=== PATIENT | male | born 1990 | race Two or more races ===

== ENCOUNTER 2017-05-29 18:00 | Emergency (ER) | payer BC, OTHER ==
[2017-05-29 18:06] VITALS: TEMP 97.7
--- NOTE | 2017-05-29 18:18 | EDPHY ---
H & P Time Seen by Provider: 05/29/17 18:02 HPI/ROS: CHIEF COMPLAINT: Right leg injury HISTORY OF PRESENT ILLNESS: 27-year-old male presents to the emergency department with injury to the right lower leg. The patient was playing soccer and his foot was planted any somehow twisted and fell injuring his right ankle. He did not hit his head or lose consciousness. Denies neck or back pain. Denies chest pain or difficulty breathing. Denies headache. Denies abdominal pain or vomiting. The incident happened at 5:30 a.m. this evening. He last ate frozen yogurt at 3:00 p.m. REVIEW OF SYSTEMS: Constitutional: No fever, no chills. Eyes: No double or blurry vision. ENT: No sore throat. Respiratory: No cough, no shortness of breath. Cardiac: No chest pain. Gastrointestinal: No abdominal pain, vomiting or diarrhea. Genitourinary: No dysuria. Musculoskeletal: No neck or back pain. Skin: No rashes. Neurological: No headache. Past Medical/Surgical History: ACL repair Social History: Lives in [place] Smoking Status: Never smoked Physical Exam: General Appearance: Alert, no distress. No visible signs of trauma to his head. He is mentating normally and answering questions appropriately. Eyes: Pupils equal and round. Extraocular motions are all intact. ENT: Mouth: Mucous membranes moist. Respiratory: No wheezing, rhonchi, or rales, lungs are clear to auscultation. Cardiovascular: Regular rate and rhythm. Gastrointestinal: Abdomen is soft and nontender, no masses, no rebound or guarding, bowel sounds normal. Neurological: Alert and oriented x 3, cranial nerves II through XII grossly intact Skin: Warm and dry, no rashes. No abrasion. No signs of open fracture or puncture wound. Musculoskeletal: Nontender to palpate along the cervical, thoracic or lumbar spine. Neck is supple. Extremities: Obvious swelling noted to the right ankle both to the medial and lateral malleolus. Diffusely tender to palpate the right ankle. Limited dorsi flexion secondary to pain. Normal sensation to light touch with normal 2 point discrimination. Strong dorsalis pedis and posterior tibial pulse palpated in the right ankle. His right knee is nontender. Right hip is nontender. Psychiatric: Patient is oriented X 3, there is no agitation. Constitutional: Initial Vital Signs Temperature (C) 36.5 C 05/29/17 18:04 Heart Rate 95 05/29/17 18:04 Respiratory Rate 16 05/29/17 18:04 Blood Pressure 117/94 H 05/29/17 18:04 O2 Sat (%) 98 05/29/17 18:04 O2 Delivery Mode Room Air Allergies/Adverse Reactions: No Known Allergies Allergy (Unverified 05/29/17 18:04) Home Medications: Medication Instructions Recorded oxyCODONE/APAP 5/325 [Percocet 1 - 2 tab PO Q4-6PRN PRN #15 tab 05/29/17 5/325] Medical Decision Making - Diagnostics Imaging Results: Imaging Impressions Ankle X-Ray 05/29/17 18:07 Impression: Unstable bimalleolar fracture of the right ankle with widening of ankle mortise. Imaging: I viewed and interpreted images myself Procedures: Patient was placed in Ortho Glass posterior and sugar-tong splint. Examined post application in good placement with normal REHAB AIDE. ED Course/Re-evaluation: 27-year-old male with right ankle injury. Xrays reveal unstable bimalleolar fracture. No evidence of open fracture. Neurovascularly intact. He was placed in Ortho Glass splint. He will be nonweightbearing and follow up with orthopedic surgeon likely where his from in [place]. Differential Diagnosis: Including but not limited to fracture, dislocation, contusion, sprain - Data Points Medications Given: Discontinued Medications Oxycodone/Acetaminophen (Percocet 5/325mg Prepack#4) 1 btl [place] [facility] Stop: 05/29/17 18:52 Last Admin: 05/29/17 18:54 Dose: 1 btl Departure - Departure Disposition: Home, Routine, Self-Care Clinical Impression: Closed right ankle fracture Qualifiers: Encounter type: initial encounter Qualified Code(s): S82.891A - Other fracture of right lower leg, initial encounter for closed fracture Condition: Good Instructions: Oxycodone/Acetaminophen (By mouth), Ankle Fracture (ED) Additional Instructions: Keep splint on and keep it dry. Nonweight bearing, use crutches. Ibuprofen 600mg every 8 hours for pain as directed. Percocet for pain to help you sleep. Elevate your ankle as much as possible to help reduce swelling. Return if you developed excessive swelling, increasing pain, numbness or tingling in your toes , or if you feel worse in any way. Referrals: Henrik Camarillo MD [Medical Doctor] - 2-3 days without fail (Orthopedic surgeon on-call) Prescriptions: oxyCODONE/APAP 5/325 [Percocet 5/325] 1 - 2 tab PO Q4-6PRN PRN #15 tab PRN Reason: For Moderate To Severe Pain
[2017-05-29] MEDS ORDERED: OXYCODONE/APAP 5/325MG PREPACK#4 BTL TAKEHOME ONE (18:51)
[2017-05-29 19:07] VITALS: BP 145/87; PULSE 75; RESP 18; O2SAT 95
== END 2017-05-29 19:08 | disposition home or self-care (01) ==
DX: S82.841A Displaced bimalleolar fracture of right lower leg, initial encounter for closed fracture (principal); W19.XXXA Unspecified fall, initial encounter; Y99.8 Other external cause status; Y93.66 Activity, soccer